=== PATIENT | female | born 1975 | race Caucasian/White ===

== ENCOUNTER 2016-09-26 11:09 | Emergency (ER) | payer BC ==
[~2016-09-26] VITALS: Ht 175.3 cm; Wt 94.5 kg
[2016-09-26 11:34] VITALS: Ht 175.3 cm; Wt 94.5 kg
[2016-09-26] MEDS ORDERED: morphine 4 MG/ML VIAL IV STA (13:05)
[2016-09-26] MEDS ORDERED: ONDANSETRON 4 MG INJ IV STA (13:05)
[2016-09-26] MEDS ORDERED: SOD CHLORIDE 0.9% 1,000 ML IV STA (13:05)
[2016-09-26] MEDS ORDERED: KETOROLAC 30 MG INJ IV STA (13:29)
[2016-09-26 13:37] LABS: ADD SCAN DIFF NO
[2016-09-26 13:40] LABS: ADD UMIC YES; BASOPHIL # 0.1 10^3/ul (0.0-0.1); BASOPHILS % 0.4 % (0.0-2.0); EOSINOPHILS % 0.1 % (0.0-7.0); HEMOGLOBIN 15.3 g/dl (12.0-16.0); LYMPHOCYTES # 1.2 10^3/ul (0.8-2.9); LYMPHOCYTES % 8.8 % (15.0-51.0); MEAN CORPUSCULAR HEMOGLOBIN 32.9 pg (29.0-33.0); MEAN CORPUSCULAR HGB CONC 34.8 g/dl (32.0-37.0); MEAN CORPUSCULAR VOLUME 94.6 fl (82.0-101.0); MEAN PLATELET VOLUME 8.7 fl (7.4-10.4); MONOCYTE # 0.6 10^3/ul (0.3-0.9); MONOCYTES % 4.1 % (0.0-11.0); NEUTROPHIL # 11.6 10^3/ul (1.6-7.5); PLATELET COUNT 295 10^3/UL (140-415); RED BLOOD COUNT 4.65 10^6/ul (4.20-5.40); RED CELL DISTRIBUTION WIDTH 12.1 % (11.5-14.5); URINE BILIRUBIN (Dip) NEGATIVE (NEGATIVE); URINE BLOOD (Dip) 3+ (NEGATIVE); URINE COLOR LT. YELLOW (YELLOW); URINE GLUCOSE (Dip) NEGATIVE (NEGATIVE); URINE KETONES (Dip) NEGATIVE (NEGATIVE); URINE LEUKOCYTE ESTERASE (Dip) NEGATIVE (NEGATIVE); URINE NITRITE (Dip) NEGATIVE (NEGATIVE); URINE TOTAL PROTEIN (Dip) NEGATIVE (NEGATIVE); URINE UROBILINOGEN (Dip) 0.2 E.U./dL (0.1-1.0); WHITE BLOOD COUNT 13.5 10^3/ul (4.8-10.8)
[2016-09-26 13:55] LABS: ALBUMIN 4.7 g/dl (3.3-4.9); ALBUMIN/GLOBULIN RATIO 1.46; BILIRUBIN,INDIRECT 0.7 mg/dl (0-1.1); BILIRUBIN,TOTAL 0.7 mg/dl (0.2-1.3); CALCIUM 9.7 mg/dl (8.4-10.2); CREATININE 0.75 mg/dl (0.44-1.00); POTASSIUM 3.9 mmol/L (3.5-5.1); TOTAL PROTEIN 7.9 g/dl (6.1-8.1)
--- NOTE | 2016-09-26 14:13 | RADRPT ---
PROCEDURE: CT Abdomen and Pelvis without contrast. CLINICAL INDICATION: Abdominal pain TECHNIQUE: CT scan of the abdomen and pelvis without contrast was performed on a multi-slice CT sc joyce without intravenous contrast. Coronal and sagittal reformatted images were obtained from the axial source images. Images were reviewed on a high-resolution PACS workstation. One or more of the following does reduction techniques were used: Automated exposure control; adjustment of the mA an d/or kV according to patient size; use of the aorta of reconstruction technique. The total exam CTD I equals 17.3 mGy and the total exam DLP equals 1050.68 mGy-cm. COMPARISON: None available. FINDINGS: The lung bases are clear. Heart size is normal, and there is no evidence of pericardial thickening or effusion. The liver, spleen, and pancreas are normal given limitations of a noncontrast CT examination. The g allbladder is normal. The adrenal glands are normal. There is mild fullness of the right renal collecting system, likely within normal limits for this patient. There is mild hydronephrosis of the left kidney and mild lef t periureteral inflammatory changes. These findings are secondary to a 2 mm left ureterovesicular j unction calcification. A 2 mm calcification in the right pelvis appears to be adjacent to the right ureter and represent a small phlebolith. The aorta is of normal caliber. There is no retroperitoneal lymph node enlargment. There is no evidence of large or small bowel obstruction. Clips are noted in the expected location of the appendix consistent with prior appendectomy. No free fluid or fluid collections are identif ied. No inflammatory changes are seen. The uterus is absent. No enlarged pelvic sidewall lymph nodes are seen. The bladder is within donal l limits. No free fluid is identified. The inguinal regions are unremarkable. The bones are intact. IMPRESSION: 1. 2 mm left ureterovesicular junction calcification causing mild left hydronephrosis and associate d periureteral inflammatory change. 2. Mild fullness of the right renal collecting system is likely within normal limits for this patie nt. Recommend correlation with physical exam and follow-up ultrasound as clinically indicated. 3. Evidence of prior appendectomy and hysterectomy. Recommend correlation with surgical history. RPTAT: KK .Shar Mack MD, MD Date Time Electronically viewed and signed by .Shar Mack MD, MD on 09/26/2016 14:13 .B/
[2016-09-26] MEDS ORDERED: HYDR-902 PO (14:30)
[2016-09-26] MEDS ORDERED: ONDA4TAB14 PO (14:31)
--- NOTE | 2016-09-26 14:33 | ERD ---
ER Documentation Chief Complaint Date/Time DATE: 09/26/16 TIME: 14:32 Chief Complaint left flank pain radiating to pelvic pain since last night, hx:kidney stones HPI Patient is a 41-year-old female who presents with left-sided flank pain that began late last night. She has a history of kidney stones in the past and she states that this feels the same. She admits to nausea but no vomiting. States it was a stabbing pressure which is now improving when compared to yesterday. Denies any dysuria or hematuria or increased urinary frequency but does admit to lower pelvic pressure. Has not taken any medication for pain. ROS All systems reviewed and are negative except as per history of present illness. Medications Home Meds Active Scripts Ondansetron (Ondansetron Odt) 4 Mg Tab.rapdis, 4 MG PO Q6H Y for NAUSEA AND/OR VOMITING, #20 TAB Prov:JESÚS COLMENARES PA-C 09/26/16 Hydrocodone/Acetaminophen ([place] 10-325 Tablet) 1 Each Tablet, 1 TAB PO Q6H Y for PAIN, #20 TAB Prov:JESÚS COLMENARES PA-C 09/26/16 Allergies Allergies: Coded Allergies: No Known Allergy (Unverified , 09/26/16) PMhx/Soc Hx Alcohol Use: No Hx Substance Use: No Hx Tobacco Use: No FmHx Family History: No diabetes Physical Exam Vitals Vital Signs Date Time Temp Pulse Resp B/P Pulse Ox O2 Delivery O2 Flow Rate FiO2 09/26/16 11:34 97.9 97 20 178/74 99 Physical Exam General: well developed, well nourished, alert, nontoxic, no distress Head: normocephalic, atraumatic Neck: Supple, nontender, no lymphadenopathy, no midline tenderness Respiratory: Clear to auscaultation bilaterally, speaks in full sentences, no use of accesory muscles or labored breathing, no rales, ronchi, or wheezing Cardiovascular: RRR, No murmurs GI: soft, non tender, non distended, negative murphys sign, negative mcburneys point tenderness, mild left cva tenderness bilaterally, no rebound or guarding Back: no midline tenderness, no step offs or bony abnormalities, sensation to light touch in tact Result Diagram: 09/26/16 1325 09/26/16 1325 Results 24 hrs Laboratory Tests Test 09/26/16 13:25 White Blood Count 13.510^3/ul Red Blood Count 4.6510^6/ul Hemoglobin 15.3g/dl Hematocrit 44.0% Mean Corpuscular Volume 94.6fl Mean Corpuscular Hemoglobin 32.9pg Mean Corpuscular Hemoglobin Concent 34.8g/dl Red Cell Distribution Width 12.1% Platelet Count 34096^3/UL Mean Platelet Volume 8.7fl Neutrophils % 86.0% Lymphocytes % 8.8% Monocytes % 4.1% Eosinophils % 0.1% Basophils % 0.4% Nucleated Red Blood Cells % 0.0/100WBC Neutrophils # 11.610^3/ul Lymphocytes # 1.210^3/ul Monocytes # 0.610^3/ul Eosinophils # 0.010^3/ul Basophils # 0.110^3/ul Nucleated Red Blood Cells # 0.010^3/ul Urine Color LT. YELLOW Urine Clarity CLEAR Urine pH 5.5 Urine Specific [place] <=1.005 Urine Ketones NEGATIVE Urine Nitrite NEGATIVE Urine Bilirubin NEGATIVE Urine Urobilinogen 0.2 E.U./dL Urine Leukocyte Esterase NEGATIVE Urine Microscopic RBC 5-10/HPF Urine Microscopic WBC 2-5/HPF Urine Hemoglobin 3+ Urine Glucose NEGATIVE% Urine Total Protein NEGATIVE Sodium Level 139mmol/L Potassium Level 3.9mmol/L Chloride Level 105mmol/L Carbon Dioxide Level 26mmol/L Anion Gap 12 Blood Urea Nitrogen 14mg/dl Creatinine 0.75mg/dl Glucose Level 115mg/dl Calcium Level 9.7mg/dl Total Bilirubin 0.7mg/dl Direct Bilirubin 0.00mg/dl Indirect Bilirubin 0.7mg/dl Aspartate Amino Transf (AST/SGOT) 22IU/L Alanine Aminotransferase (ALT/SGPT) 28IU/L Alkaline Phosphatase 80IU/L Total Protein 7.9g/dl Albumin 4.7g/dl Globulin 3.20g/dl Albumin/Globulin Ratio 1.46 Lipase 52U/L Current Medications Medications (Trade) Dose Ordered Sig/Gonzalez Route PRN Reason Start Time Stop Time Status Last Admin Dose Admin Sodium Chloride (NS) 1,000 ml @ 1,000 mls/hr Q1H STAT IV 09/26/16 13:05 09/26/16 14:04 DC 4/25/17 13:23 Morphine Sulfate (morphine) 4 mg ONCE STAT IV 09/26/16 13:05 09/26/16 13:07 DC 09/26/16 13:23 Ondansetron HCl (Zofran Inj) 4 mg ONCE STAT IV 09/26/16 13:05 09/26/16 13:07 DC 09/26/16 13:23 Ketorolac Tromethamine (Toradol) 30 mg ONCE STAT IV 09/26/16 13:29 09/26/16 13:30 DC 09/26/16 13:35 Procedures/MDM 41-year-old female presents with renal colic. Her vital signs are within normal limits other than elevated blood pressure 178/74. There is no evidence of hypertensive urgency or emergency. Labs were grossly unremarkable and CT scan did show a small 2 mm stone. Patient had good improvement of her symptoms with pain medication Zofran and fluids. She was discharged with copy of her labs and CT report so that she can follow up with primary care as well as prescription for pain medications. Recommended this patient follow up with her primary care doctor within 48 hours or return to the emergency room for any worsening of symptoms. However this time I do believe there is suitable for outpatient management. I answered all their questions and they agreed with the plan and were discharged home. Departure Diagnosis: Primary Impression: Renal colic Condition: Stable Patient Instructions: Kidney Stone W/ Colic Additional Instructions: Call your primary care doctor TOMORROW for an appointment during the next 1-2 days.See the doctor sooner or return here if your condition worsens before your appointment time. JESÚS COLMENARES PA-C Sep 26, 2016 14:33
[2016-09-26 14:50] VITALS: BP 124/66; PULSE 86; RESP 16; TEMP 98.2
== END 2016-09-26 15:10 | disposition home or self-care (01) ==
LOC: FTE 11:09
DX: N23 Unspecified renal colic (principal); R11.0 Nausea
CPT/HCPCS: 36415; 74176; 80053; 81001; 83690; 85025; 96374; 96375; 99285; J1885; J2270; J2405; J7030; 81003